=== PATIENT | male | born 1965 | race Hispanic/Latino ===

== ENCOUNTER 2017-06-07 20:16 | Emergency (ER) | payer SELFPAY ==
[~2017-06-07] VITALS: Ht 165.1 cm; Wt 56.7 kg
[2017-06-07] MEDS ORDERED: FLUORESCEIN SOD(OPTH) 1 MG STRP OP ONE (20:30)
[2017-06-07] MEDS ORDERED: EYE IRRIGATION (OPTH) 120 ML BTL OP ONE (20:30)
[2017-06-07] MEDS ORDERED: TETRACAINE HCL 0.5% OPTH SOLN 4 ML BTL OP ONE (20:30)
[2017-06-07 20:53] VITALS: BP 128/82
== END 2017-06-07 21:00 | disposition home or self-care (01) ==
LOC: ER 20:16
DX: H57.11 Ocular pain, right eye (principal); S05.01XA Injury of conjunctiva and corneal abrasion without foreign body, right eye, initial encounter
CPT/HCPCS: 99283